=== PATIENT | male | born 2000 | race Two or more races ===

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

== ENCOUNTER 2022-01-20 09:52 | Emergency (ER) | payer BC, SELFPAY ==
--- NOTE | ~2022-01-20 | XR_ITS ---
EXAMINATION: XR ankle RT min 3V, XR foot RT min 3V DATE: 01/20/2022 10:12 INDICATION: Lateral right ankle pain post basketball injury TECHNIQUE: 1. Anteroposterior, mortise, additional oblique and lateral view of the right ankle were obtained. 2. Dorsoplantar, two oblique and lateral views of the right foot were obtained. COMPARISON: None. FINDINGS: Alignment of the foot and ankle is normal. Small thin curvilinear ossification projecting 4 mm anteri or to the tuberosity of the calcaneus with differential including either a small chip or avulsion fra cture fragment or calcification/developing os peroneus along the peroneus longus tendon. Joint spaces are well maintained. Small somewhat bulbous osseous excrescence with cortical and medullary continui ty arising from the dorsal lateral neck of the talus suggestive of an osteochondroma. No ankle joint effusion. Soft tissue swelling about the right lateral malleolus. IMPRESSION: 1. Small linear calcification projecting near the tuberosity plantar aspect of the calcaneus equivoca l for either a small cortical chip or avulsion fracture fragment or calcification related to developi ng os peroneus along the peroneus longus tendon. Correlate for point tenderness at the lateral planta r aspect of the midfoot. 2. No other lesions suspicious for fracture or other acute osseous abnormality. 3. Suggestion of a small osteochondroma arising from the dorsal lateral neck the talus. Reviewed, dictated and finalized at location A. [employer] IMPRESSION: 1. Small linear calcification projecting near the tuberosity plantar aspect of the calcaneus equivocal for either a small cortical chip or avulsion fracture f ragment or calcification related to developing os peroneus along the peroneus l ongus tendon. Correlate for point tenderness at the lateral plantar aspect of t he midfoot. 2. No other lesions suspicious for fracture or other acute osseous abnormality. 3. Suggestion of a small osteochondroma arising from the dorsal lateral neck th e talus.
[2022-01-20 10:03] VITALS: BP 130/66; PULSE 57; RESP 16; TEMP 35.9; O2SAT 99
--- NOTE | 2022-01-20 10:04 | ED.LOWEXIN ---
HPI - Extremity Injury (Lower) General Chief Complaint: Extremity Injury, Lower Stated Complaint: INJURED R ANKLE Time Seen by Provider: 01/20/22 10:04 Source: patient, RN notes reviewed and old records reviewed Mode of arrival: ambulatory Limitations: no limitations History of Present Illness HPI Narrative: 21-year-old male who presents to [facility] with complaints of injury to his right ankle which occurred last night while playing basketball. Patient states that he twisted/rolled his right foot and ankle with pain voiced to lateral ankle area and to forefoot and also lateral foot. Patient does have swelling present to lateral right ankle and to lateral foot region.Patient also has some point tenderness along plantar aspect of his midfoot and he is unable to flex and hyperextend toes. Patient has mild bruising noted to lateral foot and has strong pedal and posterior tibial pulses.Patient reports that he is unable to bear weight on his right foot, has taken Ibuprofen and iced ankle and foot. MD complaint: ankle injury and foot injury Onset (ago): hour(s) (occurred last night) Type of Injury: other (rolled foot and ankle of right foot) Place: street/outdoors Severity scale (1-10): 6 Treatments prior to arrival: cold therapy and NSAIDS Related Data Home Medications Medication Instructions Recorded Confirmed No Home Medications 01/20/22 01/20/22 Allergies Allergy/AdvReac Type Severity Reaction Status Date / Time No Known Allergies Allergy Verified 01/20/22 09:57 Review of Systems Review of Systems: CONSTITUTIONAL: Denies fever, chills, or sweats. CARDIOVASCULAR: Denies chest pain, palpitations, or edema. RESPIRATORY: Denies cough or dyspnea. SKIN: Denies rash or itching. Denies laceration or abrasions MUSCULOSKELETAL: Reports injury to his right ankle and foot last night while playing basketball rolled /twisted right foot and ankle NEUROLOGIC: Denies numbness, or weakness. All systems reviewed & are unremarkable except as noted in HPI and below PMFSH Past Medical History Medical History (Updated 01/23/22 @ 14:50 by Shasta Davis NP) ADHD (attention deficit hyperactivity disorder) Ear infection Surgical History Surgical History (Updated 01/23/22 @ 14:50 by Shasta Davis NP) History of circumcision 10/2001 History of hand surgery fracture of right 4th finger with ORIF History of placement of ear tubes History of tympanoplasty of left ear x2 Family History Family History (Updated 01/20/22 @ 10:12 by Shasta Davis NP) Other Adopted Social History Social History (Updated 01/23/22 @ 14:48 by Shasta Davis NP) Smoking status: Never smoker Alcohol intake: current Alcohol use details: social Substance use type: does not use Living arrangements: with family Gender identity (if verbalized by the patient): Male Comments At time of signature, agree with nursing past medical, surgical, social and family history. There is no relevant family history pertinent to the presenting complaint Exam Narrative: GENERAL: Well-appearing, well-nourished, and in no acute distress. HEAD: Normocephalic, atraumatic. EYES: PERRLA, conjunctivae clear NECK: Supple. CHEST: Speaks in full sentences. No respiratory distress.SAO2 99% on room air HEART: Regular rate and rhythm. Normal and equal peripheral pulses EXTREMITIES: Right ankle has normal strength and sensation, normal range of motion.Lateral right ankle and lateral foot edema or ecchymosis. 5/5 strength with limited flexion and extension of toes. Normal sensation with sensitivity to light touch and pain. point tenderness lateral plantar forefoot.?No open wounds, no skin tenting, no devitalized tissue or atrophy, no trophic changes, no obvious deformity, alignment normal, nearby joints and structures intact. Distal pulses palpable and equal bilaterally, skin warm, dry, pink. Capillary refill less than 3 seconds. Course Cou
== END 2022-01-20 11:25 | disposition home or self-care (01) ==
PROVIDERS: Emergency Provider Registered Nurse; PCP Pediatrics
DX: S96.911A Strain of unspecified muscle and tendon at ankle and foot level, right foot, initial encounter (principal); X50.9XXA Other and unspecified overexertion or strenuous movements or postures, initial encounter; Y93.67 Activity, basketball; S92.031A Displaced avulsion fracture of tuberosity of right calcaneus, initial encounter for closed fracture
CPT/HCPCS: 73610; 73630; 99204; G0463

== ENCOUNTER 2022-04-09 14:52 | Emergency (ER) | payer BC, SELFPAY ==
--- NOTE | ~2022-04-09 | XR_ITS ---
EXAMINATION: XR abdomen obstructive series DATE: 04/09/2022 15:26 INDICATION: Generalized abdominal pain TECHNIQUE: Upright and supine views of the abdomen were obtained. COMPARISON: None. FINDINGS: The bowel gas pattern is normal. There are no dilated loops of bowel. The visualized lung b ases are clear. The osseous structures are unremarkable. IMPRESSION: 1. No radiographic correlate for the patient's symptoms. Reviewed, dictated and finalized at location B. NESS DIRECTOR
[2022-04-09 15:01] VITALS: BP 111/55; PULSE 69; RESP 16; TEMP 36.6; O2SAT 100
--- NOTE | 2022-04-09 15:11 | ED.NAVMDI ---
HPI - Nausea/Vomiting/Diarrhea General Chief complaint: Nausea/Vomiting/Diarrhea Stated complaint: Nausea,Vomiting Time Seen by Provider: 04/09/22 15:11 Source: patient Mode of arrival: ambulatory Limitations: no limitations History of Present Illness HPI Narrative: 21-year-old male presents with complaint of nausea, decreased appetite, generalized abdominal discomfort and bloating for the past month. Reports that 2 hours after eating any type of food he either is vomiting or has diarrhea. He is able to keep down Water. Sometimes is able to keep down small meals. He has an appointment with a new PCP in 3 days. Today he states nausea was really bad he did not feel that he could wait until PCP appointment. No worsening of his abdominal pain. No urinary complaints. Afebrile. All systems reviewed and negative except as noted above. Related Data Allergies Allergy/AdvReac Type Severity Reaction Status Date / Time No Known Allergies Allergy Verified 04/09/22 14:55 Review of Systems Review of Systems: CONSTITUTIONAL: Denies fever, chills, or sweats. Reports decreased appetite. EYES: Denies visual changes, redness, or discharge. ENT: Denies rhinorrhea, congestion, sore throat, or otalgia. CARDIOVASCULAR: Denies chest pain, palpitations, or edema. RESPIRATORY: Denies cough or dyspnea. GASTROINTESTINAL: Reports intermittent abdominal pain, nausea, vomiting, or diarrhea. GENITOURINARY: Denies dysuria or hematuria. SKIN: Denies rash or itching. MUSCULOSKELETAL: Denies back pain, joint pain, or myalgia. NEUROLOGIC: Denies headache, numbness, or weakness. PSYCHIATRIC: Denies anxiety or depression. All other systems reviewed are negative, except as documented in HPI. [facility] Past Medical History Medical History (Updated 04/09/22 @ 15:37 by Paola John NP) ADHD (attention deficit hyperactivity disorder) Ear infection Surgical History Surgical History (Updated 01/23/22 @ 14:50 by Shasta Davis NP) History of circumcision 10/2001 History of hand surgery fracture of right 4th finger with ORIF History of placement of ear tubes History of tympanoplasty of left ear x2 Family History Family History (Updated 01/20/22 @ 10:12 by Shasta Davis NP) Other Adopted Social History Social History (Updated 01/23/22 @ 14:48 by Shasta Davis NP) Smoking status: Never smoker Alcohol intake: current Alcohol use details: social Substance use type: does not use Living arrangements: with family Gender identity (if verbalized by the patient): Male Comments At time of signature, agree with nursing past medical, surgical, social and family history. There is no relevant family history pertinent to the presenting complaint. Exam Narrative: GENERAL: This is a well-nourished, well-developed patient, in no apparent distress. HEAD: normocephalic, atraumatic. EYES: PERRL. Sclera clear/white. Vision is grossly intact. EARS: External ears normal NOSE: External nose normal NECK: Neck supple, non-tender without lymphadenopathy, masses or thyromegaly. CARDIOVASCULAR: Regular rate and rhythm without murmurs, gallops, or rubs. RESPIRATORY: Clear to auscultation. Breath sounds equal bilaterally. No wheezes, rales, or rhonchi. GASTROINTESTINAL: Abdomen soft, non-tender, nondistended. Bowel sounds are active. No hepato-splenomegaly, or palpable masses. No guarding. SKIN: warm, Dry, intact with no suspicious lesions or rash, good texture and turgor. NEURO: awake, alert, and oriented to person, place and time. There were no obvious focal neurologic abnormalities. EXTREMITIES: No joint tenderness, effusion, or edema noted. Course Course Level of Care: Express Care Visit Vital Signs Vital signs: Vital Signs Temperature 36.6 C 04/09/22 15:01 Pulse Rate 69 04/09/22 15:01 Respiratory Rate 16 04/09/22 15:01 Blood Pressure 111/55 L 04/09/22 15:01 Pulse Oximetry 100 04/09/22 15:01 Oxy
== END 2022-04-09 15:45 | disposition home or self-care (01) ==
PROVIDERS: Emergency Provider Nurse Practitioner Family; PCP Nurse Practitioner Family
DX: R10.9 Unspecified abdominal pain (principal); R11.2 Nausea with vomiting, unspecified; R63.8 Other symptoms and signs concerning food and fluid intake
CPT/HCPCS: 74019; 99213; G0463

== ENCOUNTER 2022-07-15 08:09 | Emergency (ER) | payer BC, SELFPAY ==
[2022-07-15 08:23] VITALS: BP 117/75; PULSE 57; RESP 16; TEMP 36.6; O2SAT 99
--- NOTE | 2022-07-15 08:34 | ED.EAR ---
HPI - Ear Problem General Chief complaint: Ear Stated complaint: left ear clogged Time Seen by Provider: 07/15/22 08:25 Source: patient Mode of arrival: ambulatory Limitations: no limitations History of Present Illness HPI Narrative: Hiren is a 21-year-old male patient presenting to the clinic today with complaints of left ear pain x3 days. He reports that his ear feels clogged and is painful. Worse pain was last night. He denies any fever chills. He denies any recent swimming. History of tubes in his ears. Related Data Allergies Allergy/AdvReac Type Severity Reaction Status Date / Time No Known Allergies Allergy Verified 07/15/22 08:34 Review of Systems Review of Systems: Pertinent positives per HPI. Patient denies any fever, chills, rash, headache, visual changes, dizziness, cough, shortness of breath, chest pain, palpitations, nausea, vomiting, diarrhea, constipation, abdominal pain, or any urinary issues. PMFSH Past Medical History Medical History ADHD (attention deficit hyperactivity disorder) BMI 30.0-30.9,adult Ear infection Encounter to establish care GERD (gastroesophageal reflux disease) Nausea and vomiting Surgical History Surgical History History of circumcision 10/2001 History of hand surgery fracture of right 4th finger with ORIF History of placement of ear tubes History of tympanoplasty of left ear x2 Previous back surgery Family History Family History Other Adopted Social History Social History Smoking status: Never smoker Alcohol intake: current Alcohol use details: Socially Substance use: current Substance use type: marijuana Lack of Transportation: No Lack of Food: Never True Current Housing: I Have Housing Concerned About Future Housing: No Difficulty Paying Gas/Electric Bills: No Difficulty Paying for Meds: No Currently Unemployed: No Education: High School Diploma/GED Difficulty w/ Childcare or Family Care: No Living arrangements: with family Gender identity (if verbalized by the patient): Male Comments At the time of my signature, I reviewed and agree with the nursing past medical, surgical, social, and family history. There is no relevant family history pertinent to the patient complaint. Exam Narrative: General: Well-developed, well nourished, in no apparent distress Head: Normocephalic, atraumatic Eyes: Pupils equally round and reactive to light bilaterally, EOM intact, sclera and conjunctive clear, no discharge, lids normal Ears: Right TM intact and clear, Unable to visualize Left TM, ear canals ceruminous, left ear canal swelling with tenderness to palpation of the tragus and pulling of the left pinna, no drainage, grossly hearing normal. Nose: Nares patent, no discharge, no inflammation, no sinus tenderness. Mouth: Oral pharynx without lesions or masses, good dentition, MMM. Neck: Supple, trachea midline, no enlargement of anterior or posterior cervical nodes, no thyroid masses or goiter palpable. Cardio: Regular rate and rhythm, s1 and s2 normal, no murmur appreciated. Resp: Clear to auscultation bilaterally, no rhonchi, rales, wheezing or rubs Course Course Emergency Course: Portions of this record may have been created with voice recognition software. Level of Care: Express Care Visit Vital Signs Vital signs: Vital Signs Temperature 36.6 C 07/15/22 08:23 Pulse Rate 57 L 07/15/22 08:23 Respiratory Rate 16 07/15/22 08:23 Blood Pressure 117/75 07/15/22 08:23 Pulse Oximetry 99 07/15/22 08:23 Temperature 36.6 C 07/15/22 08:23 Pulse Rate 57 L 07/15/22 08:23 Respiratory Rate 16 07/15/22 08:23 Blood Pressure 117/75 07/15/22 08:23 Puls
--- NOTE | 2022-07-15 09:21 | PC.NURSE ---
0835- ASSORTER attempted to irrigate the ear canal with our elephant ear, but pt didnt tolerate it well, so ASSORTER stopped due to pt request.
== END 2022-07-15 08:39 | disposition home or self-care (01) ==
PROVIDERS: Emergency Provider Nurse Practitioner Family; PCP Nurse Practitioner Family
DX: H60.92 Unspecified otitis externa, left ear (principal); H61.23 Impacted cerumen, bilateral; F12.90 Cannabis use, unspecified, uncomplicated; K21.9 Gastro-esophageal reflux disease without esophagitis
CPT/HCPCS: 69209; 99213; G0463

== ENCOUNTER 2023-10-09 13:17 | Emergency (ER) | payer BC, SELFPAY ==
[2023-10-09 13:28] VITALS: BP 96/56; PULSE 72; RESP 16; TEMP 37.4; O2SAT 100
--- NOTE | 2023-10-09 13:56 | ED.URI ---
HPI - URI/Sore Throat General Chief Complaint: Upper Respiratory Infection Stated Complaint: Sore Throat/Chills Time Seen by Provider: 10/09/23 13:55 Source: patient, RN notes reviewed and old records reviewed Mode of arrival: ambulatory Limitations: no limitations History of Present Illness HPI Narrative: patient presents with 2 day history of sore throat, chills, headache, body aches. He reports occasional cough. He is unsure how high his fever has been at home. He has not been taking anything for his symptoms. He is in no distress at this time, voices no concerns or complaints Related Data Home Medications Medication Instructions Recorded Confirmed No Home Medications 10/09/23 10/09/23 Allergies Allergy/AdvReac Type Severity Reaction Status Date / Time No Known Allergies Allergy Verified 10/09/23 13:51 Review of Systems Review of Systems: All systems reviewed & are unremarkable except as noted in HPI and below Constitutional: Constitutional: Reports no additional constitutional complaints ENT: Reports system reviewed and no additional complaints, except as documented, Reports headache(s) and Reports sore throat Cardiovascular: Cardiovascular: Reports no additional cardiovascular complaints Respiratory: Respiratory: Reports no additional respiratory complaints Gastrointestinal: Gastrointestinal: Reports no additional gastrointestinal complaints Musculoskeletal: Musculoskeletal: Reports as per HPI [facility] Past Medical History Medical History ADHD (attention deficit hyperactivity disorder) BMI 30.0-30.9,adult Ear infection Encounter to establish care GERD (gastroesophageal reflux disease) Nausea and vomiting Surgical History Surgical History History of circumcision 10/2001 History of hand surgery fracture of right 4th finger with ORIF History of placement of ear tubes History of tympanoplasty of left ear x2 Previous back surgery Family History Family History Other Adopted Social History Social History Smoking status: Never smoker Alcohol intake: current Alcohol use details: Socially Substance use: current Substance use type: marijuana Lack of Transportation: No Lack of Food: Never True Current Housing: I Have Housing Concerned About Future Housing: No Difficulty Paying Gas/Electric Bills: No Difficulty Paying for Meds: No Currently Unemployed: No Education: High School Diploma/GED Difficulty w/ Childcare or Family Care: No Living arrangements: with family Gender identity (if verbalized by the patient): Male Comments At the time of my signature, I reviewed and agree with the nursing past medical, surgical, social, and family history. There is no relevant family history pertinent to the patient complaint. Exam Const: General: cooperative, no acute distress, alert and awake Orientation/consciousness: oriented to person, oriented to place and oriented to time HENMT: Head: normal to inspection Ears: Abnormal EAC present cerumen impaction bilateral Mouth: Yes moist mucous membranes Throat: posterior oropharynx abnormal erythema; no edema Resp: Effort & Inspection: normal respiratory effort and able to speak in complete sentences Auscultation: clear to auscultation bilaterally, no crackles, no rales, no rhonchi and no wheezes Cardio: Palpation: normal PMI Rate: regular rate Rhythm: regular rhythm Heart sounds: S1 normal heart sound present and S2 normal heart sound present Neuro: General: oriented to person, oriented to place and oriented to time Cranial nerves: Yes CN's II-XII intact bilaterally Psych: Appearance: grossly normal Thought process: Normal thought process present Insight: Good insight prese
[2023-10-09 14:01] LABS: EDINFLUASCREEN Negative; EDINFLUBSCREEN Negative; EDSTREPNEGPOS1 Presumptive Negative
== END 2023-10-09 14:10 | disposition home or self-care (01) ==
PROVIDERS: Emergency Provider Nurse Practitioner Family
DX: J06.9 Acute upper respiratory infection, unspecified (principal); H61.23 Impacted cerumen, bilateral; Z20.822 Contact with and (suspected) exposure to COVID-19; K21.9 Gastro-esophageal reflux disease without esophagitis
CPT/HCPCS: 87081; 87426; 87804; 87880; 99213; G0463